=== PATIENT | male | born 1995 | race Caucasian/White ===

== ENCOUNTER → 2016-05-19 | Day surgery (SDC) | payer OTHER ==
[2016-01-27 08:00] VITALS: BMI 27.1
[~2016-05-19] MED LIST: CEFAZOLIN 1 GM VIAL ONE; DEXAMETHASONE 4 MG/ML VIAL IV ONE; FENTANYL 100 MCG/2 ML VIAL IV ONE; FENTANYL 100 MCG/2 ML VIAL IV PRN; GLYCOPYRROLATE 1 MG VIAL IM ONE; Gentamicin 80 mg/50 ml NaCl 80 MG/50 ML RTU ONE; HYDROmorphone 1 MG INJECTION IV PRN; ISOVUE-300 (61%) 50 ML ONE; LABETALOL 20 MG/4 ML SYRINGE IV PRN; MEPERIDINE 25 MG/ML TUBEX IV PRN; MIDAZOLAM 2 MG/2 ML VIAL IV ONE; ONDANSETRON HCL 4 MG ODT TAB PO PRN; ONDANSETRON HCL 4 MG/2 ML VIAL IV ONE; ONDANSETRON HCL 4 MG/2 ML VIAL IV PRN; PROPOFOL 200 MG/20 ML VIAL IV ONE; hydrALAZINE 20 MG/ML VIAL IV PRN
--- NOTE | 2016-05-19 13:41 | HIM.ANES ---
Anesthesia Evaluation & Plan Diagnoses: CALCULUS OF KIDNEY (05/19/16) UNSPECIFIED ABDOMINAL PAIN (05/19/16) - Focused Review of Systems Psychological: No Hx Depression Smoking Status: Never smoker - Focused Physical Exam NPO since: after Midnight Mallampati: Class I Thyromental Distance: Greater than 3 Neck: Full Range of Motion Dental: Normal - no significant findings Cardiovascular/Chest: Normal Respiratory: Lungs clear Other: Allergies Allergy/AdvReac Type Severity Reaction Status Date / Time No Known Allergies Allergy Verified 01/27/16 08:00 Home Medications Medication Instructions Recorded Last Taken Type Oxycodone Immediate Release 5 - 15 mg PO Q4H PRN #20 tab 01/23/16 05/17/16 Rx [Oxycodone Immediate Release (OxyIR)] Promethazine [Phenergan] 25 mg PO Q6 PRN #20 tab 01/23/16 05/17/16 Rx Tamsulosin HCl [Flomax] 0.4 mg PO DAILY #7 cap 01/27/16 05/17/16 Rx Height and Weight Patient's height 5 ft 7 in Patient's weight 78.608 kg BMI 27.1 - Anesthetic Plan Anesthesia Type: General ASA Class: 2 -: I have examined this patient and reviewed the medical record. The patient has been assessed prior to anesthesia. Risks and benefits of anesthesia and anesthetic technique options have been discussed and all questions answered. The patient accepts the risk and desires me to proceed with the planned anesthetic.
--- NOTE | 2016-05-19 16:23 | HIMOPRPT ---
PROCEDURE: DATE OF PROCEDURE: 05/19/16 PREOPERATIVE DIAGNOSIS: Left renal calculus and hydronephrosis. POSTOPERATIVE DIAGNOSIS: Left renal calculus and hydronephrosis. PROCEDURE PERFORMED: Cystoscopy, left retrograde pyelogram, stone manipulation and stent. SURGEON: Francisco Maxwell MD ANESTHESIA USED: General. INDICATION FOR PROCEDURE: The patient is an 21 WHITE M with a history of renal lithiasis and was found to have an obstructing stone at the left UPJ. He is brought in now for stent placement prior to ESWL . PROCEDURE IN DETAIL: The patient was brought into the operating room, placed on the table in the supine position. After adequate general anesthesia was achieved , the patient was carefully placed in dorsal lithotomy and the perineum prepped and draped in sterile fashion for the performance of cystoscopy. Initially, the 23-Slovenian scope was passed under direct vision through the urethra and into the bladder. No lesions were noted in the urethra. Inspection revealed the bladder to be intact and no lesions noted. Attention was turned to the left ureteral orifice and a 5 Slovenian open-ended catheter placed there. 4-6 cc of contrast was used to obtain a retrograde pyelogram , which showed the obstructing stone at the proximal UPJ with some hydronephrosis proximal to that. A Nitinol wire was then able to be worked up the ureter and then was some careful manipulation it was seen to bypass the stone and curl in the renal pelvis. The open-ended catheter was then advanced and in doing so this pushed the stone up into the renal pelvis. The stent measured the ureter out to approximately 22 cm. I removed the open-ended catheter, wire remained in place. Over the wire, then the 6-Slovenian 22 cm stent was placed, it was seen to curl fluoroscopically in the kidney and then visually in the bladder. At this point, then the procedure was terminated. The bladder was filled. Cystoscope removed. A 16-Slovenian Tirado placed to drain the bladder. The patient tolerated all this well. The patient was then awakened and taken to the recovery room in good condition.
--- NOTE | 2016-05-19 16:47 | SC.ANESPOS ---
Post-Anesthesia Note LOC: Fully Awake Post-Anesthesia Assessment: Awake, Returned to Baseline, Hemodynamically Stable , Pain Control Adequate Phase I & II Recovery Complete: Yes Apparent Anesthesia Complication: No : N - Vital Signs Blood Pressure: 96/55 Pulse: 58 Resp Rate: 12 O2 Sat: 97 Temp: 98.9 F
[2016-05-19 17:41] LABS: LEUKOCYTES/URINE 2+ (NEGATIVE); NITRITE/URINE NEG (NEGATIVE); URINE OCCULT BLOOD 3+ (NEG/TRACE); WBC/URINE TNTC (0-2)
[2016-05-19 18:35] VITALS: BP 122/63; PULSE 79; TEMP 98.2
== END ==
LOC: SDC 12:54
PROVIDERS: ATTEND Urology
PROC: 0T778DZ Dilation of Left Ureter with Intraluminal Device, Via Natural or Artificial Opening Endoscopic (ICD-10-PCS; principal; 2016-05-19 13:45)
DX: N13.2 Hydronephrosis with renal and ureteral calculous obstruction (principal)
CPT/HCPCS: 52332; 81001; 87086; J0690; J1100; J1580; J2250; J2405; J3010; J3490